=== PATIENT | male | born 1975 | race Two or more races ===

== ENCOUNTER 2019-02-11 10:14 | Outpatient (CLI) | payer OTHER | END 2019-02-11 10:38 | disposition home or self-care (01) | LOC: RAD 501 10:14 | DX: M25.522 Pain in left elbow (principal) ==

== ENCOUNTER 2022-01-17 13:54 | Outpatient (CLI) | payer OTHER | END 2022-01-17 14:07 | disposition home or self-care (01) | LOC: RAD 13:54 | PROVIDERS: ATTEND Orthopaedic Surgery | DX: M24.122 Other articular cartilage disorders, left elbow (principal); M24.022 Loose body in left elbow ==